=== PATIENT | female | born 1945 | race Caucasian/White ===

== ENCOUNTER → 2016-07-05 | Outpatient (CLI) | payer OTHER, MEDICARE ==
[2016-07-05 13:53] LABS: BASOPHILS # (AUTO) 0.04 10*3/UL; BASOPHILS % (AUTO) 0.7 % (0-1); EOSINOPHILS # (AUTO) 0.09 10*3/UL; EOSINOPHILS % (AUTO) 1.6 % (0-8); HEMATOCRIT 43.6 % (37.0-47.0); HEMOGLOBIN 14.4 g/dL (12.0-16.0); LYMPHOCYTES # (AUTO) 1.93 10*3/uL; MEAN CORPUSCULAR VOLUME 93.8 FL (81-99); MEAN PLATELET VOLUME 9.4 FL (7.4-12.2); MONOCYTES # (AUTO) 0.52 10*3/UL (0.3-0.8); MONOCYTES % (AUTO) 9.1 % (5-15); NEUTROPHILS # (AUTO) 3.15 10*3/UL; NEUTROPHILS % (AUTO) 54.8 % (50-80); RED BLOOD COUNT 4.65 10^6/uL (4.20-5.40)
[2016-07-05 13:58] LABS: PLATELET MORPHOLOGY COMMENT NORMAL MORPHOLOGY (NORM); RBC MORPHOLOGY COMMENT NORMAL MORPHOLOGY (NORM); WBC MORPHOLOGY COMMENT NORMAL MORPHOLOGY (NORM)
[2016-07-05 14:02] LABS: BILIRUBIN,URINE NEGATIVE (NEG); COLOR,URINE YELLOW; GLUCOSE, URINE (UA) NEGATIVE (NEG); NITRATE,URINE NEGATIVE (NEG); OCCULT BLOOD,URINE NEGATIVE (NEG); PROTEIN,URINE NEGATIVE (NEG); UROBILINOGEN,URINE 0.2 mg/dL (0.2)
[2016-07-05 14:06] LABS: CLARITY,URINE CLEAR (CLEAR)
[2016-07-05 14:11] LABS: BACTERIA,URINE RARE; SQUAMOUS EPITHELIAL CELL,UR RARE
[2016-07-05 14:22] LABS: BUN/CREATININE RATIO 23.33 (6-20); CHOL/HDL RATIO 2.92 RATIO (0-4.0); SERUM ALBUMIN 4.6 g/dL (3.5-4.8)
[2016-07-05 14:27] LABS: HEMOGLOBIN A1C 6.23 % (4.2-6.0)
[2016-07-05 14:30] LABS: CREATININE, URINE 51.8 MG/DL (15-500)
[2016-07-05 14:38] LABS: URINE SAMPLE TYPE CLEAN CATCH URINE
== END ==
LOC: LAB 13:27
PROVIDERS: ATTEND Internal Medicine
DX: E11.9 Type 2 diabetes mellitus without complications (principal); Z79.4 Long term (current) use of insulin; I10 Essential (primary) hypertension; E03.9 Hypothyroidism, unspecified; L71.9 Rosacea, unspecified; N32.81 Overactive bladder; E66.3 Overweight; Z68.28 Body mass index [BMI] 28.0-28.9, adult; F51.01 Primary insomnia; G47.9 Sleep disorder, unspecified; M47.816 Spondylosis without myelopathy or radiculopathy, lumbar region
CPT/HCPCS: 36415; 80053; 80061; 81001; 82043; 83036; 84443; 85025; 99214; G0463

== ENCOUNTER → 2016-09-06 | Outpatient (CLI) | payer OTHER, MEDICARE ==
[2016-09-06 11:45] LABS: SERUM ALBUMIN 4.4 g/dL (3.5-4.8)
[2016-09-07 12:28] LABS: HEP B CORE IGM ANTIBODY Negative (Negative); HEPATITIS A IGM Negative (Negative); HEPATITIS B SURFACE AG Negative (Negative)
== END ==
LOC: LAB 11:01
PROVIDERS: ATTEND Internal Medicine
DX: R94.5 Abnormal results of liver function studies (principal)
CPT/HCPCS: 80076; 86705; 86709; 86803; 87340